=== PATIENT | female | born 1975 | race Caucasian/White ===

== ENCOUNTER 2017-02-10 21:16 | Emergency (ER) | payer BC, OTHER ==
[~2017-02-10] VITALS: Wt 115.0 kg
[2017-02-10] MEDS ORDERED: IBUP-1542 PO (23:18)
--- NOTE | 2017-02-10 23:21 | ERD ---
ER Documentation Chief Complaint Date/Time DATE: 02/10/17 TIME: 23:17 Chief Complaint l. ankle pain s/p trip and fall HPI 41-year-old female presents here in emergency department for complaints of left ankle pain after tripping and twisting it today. Patient described the pain as throbbing pain, 8/10 scale, is worse upon movement accompanied with swelling. Patient took ibuprofen at home to help with symptoms with mild relief. Patient denies any numbness or tingling. Patient denies any deformity. Patient denies any fever or chills. Patient denies any other joint pains. ROS All systems reviewed and are negative except as per history of present illness. Medications Home Meds Active Scripts Hydrocodone/Acetaminophen (Sabine 5-325 Tablet) 1 Each Tablet, 1 TAB PO Q6H Y for SEVERE PAIN LEVEL 7-10, #20 TAB Prov:SAKSHI ARVIZU [employer] 02/11/17 Ibuprofen* (Motrin*) 600 Mg Tab, 600 MG PO Q6H Y for PAIN AND OR ELEVATED TEMP, #30 TAB Prov:SAKSHI ARVIZU [employer] 02/11/17 Reported Medications Ibuprofen* (Motrin*) Unknown Strength Tab, PO Q6H Y for PAIN AND OR ELEVATED TEMP, #30 TAB 02/10/17 Allergies Allergies: Coded Allergies: No Known Allergy (Unverified , 02/10/17) PMhx/Soc Medical and Surgical Hx: pt denies Medical Hx History of Surgery: Yes (c section) Hx Alcohol Use: No Hx Substance Use: No Hx Tobacco Use: No Smoking Status: Never smoker FmHx Family History: No coronary disease, No diabetes, No other Physical Exam Vitals Vital Signs Date Time Temp Pulse Resp B/P Pulse Ox O2 Delivery O2 Flow Rate FiO2 02/11/17 00:39 96.0 74 128/89 96 Room Air 02/10/17 21:20 98.8 80 20 139/81 95 Physical Exam GENERAL: The patient is well developed and appropriate for usual state of health, in no apparent distress. HEENT: Atraumatic. Ears: Normal tympanic membrane, no erythema or bulging. No ear canal swelling. No ear discharge. Nose: normal nasal turbinates, no erythema or swelling. Normal nasal discharge. Throat: oropharynx clear. No tonsillar swelling or tonsillar exudates. No lymphadenopathy. CHEST: Clear to auscultation bilaterally. There are no rales, wheezes or rhonchi. HEART: Regular rate and rhythm. No murmurs, clicks, rubs or gallops. No S3 or S4. ABDOMEN: Soft, nontender and nondistended. Good bowel sounds. No rebound or guarding. No gross peritonitis. No gross organomegaly or masses. No Puentes sign or McBurney point tenderness. BACK: No midline or flank tenderness. EXTREMITIES: Tenderness on palpation of lateral malleolus of the left ankle, swelling noted, limitation of movement because of the swelling. Equal pulses bilaterally. Full range of motion of other joints of the body. Grossly neurovascularly intact. NEURO: Alert and oriented. Cranial nerves 2-12 intact. Motor strength in all 4 extremities with 5/5 strength. Sensation grossly intact. Normal speech and gait. SKIN: There is no apparent rash or petechia. The skin is warm and dry. HEMATOLOGIC AND LYMPHATIC: There is no evidence of excessive bruising or lymphedema. No gross cervical, axillary, or inguinal lymphadenopathy. Results 24 hrs PROCEDURE: XR left ankle. CLINICAL INDICATION: Post traumatic lateral left ankle pain TECHNIQUE: AP , oblique and lateral views of theleft ankle were performed. COMPARISON: None. FINDINGS: There is normal mineralization and alignment. Horizontal nondisplaced fracture through the lateral malleolus below the level of the ankle mortise is present. No additional fractures are noted. The ankle mortis and talar dome are intact. Severe soft tissue swelling overlying the lateral ankle is noted. There is no evidence for a radiopaque foreign body. RPTAT:HJJR IMPRESSION: Acute, closed, nondisplaced lateral malleolus fracture of the left ankle with severe overlying soft tissue swelling. Physician Joselin Date Time Electronically viewed and signed by Physician Joselin on 02/11/2017 00:05 / CC: SAKSHI ARVIZU [employer] After receiving patients xray report, a posterior ankle splint and stirrup splint was applied on the patients left ankle. After application of the splint , patient has intact sensation and circulation on distal area of the affected joint. Patient does not complain of numbness or tingling after application of the splint. Patient tolerated procedure well. She is using crutches already, was advised to continue to use it. Procedures/MDM Medical Decision Making: Patient's pain is most likely consistent with a left ankle fracture, lateral malleolus nondisplaced fracture. There is no suspicion for neurovascular compromise. Patient has intact sensation and circulation of the affected extremity. There is low suspicion for septic arthritis. Patient does not have any fever. Radiology exams of the affected area does not show any dislocation. Disposition: Home. Patient is given prescription for ibuprofen for pain, Sabine for severe pain. Patient was advised to elevate the affected area and apply ice on affected area. Patient was advised that if symptoms are worse, numbness, tingling, high fever, unable to move joint, worsening symptoms, to return to emergency department immediately. Otherwise, patient is advised to follow up with the primary care doctor in 5-7 days for reevaluation of symptoms. See orthopedic doctor within 3-5 days. Keep splint in place, use crutches. Departure Diagnosis: Primary Impression: Lateral malleolar fracture Encounter type: initial encounter Fracture type: closed Fracture alignment : nondisplaced Laterality: left Qualified Code: S82.65XA - Closed nondisplaced fracture of lateral malleolus of left fibula, initial encounter Condition: Stable Patient Instructions: Fracture, Ankle (General) Additional Instructions: . Patient is given prescription for ibuprofen for pain, Sabine for severe pain. Patient was advised to elevate the affected area and apply ice on affected area. Patient was advised that if symptoms are worse, numbness, tingling, high fever, unable to move joint, worsening symptoms, to return to emergency department immediately. Otherwise, patient is advised to follow up with the primary care doctor in 5-7 days for reevaluation of symptoms. See orthopedic doctor within 3-5 days. Keep splint in place, use crutches. SAKSHI ARVIZU NP Feb 10, 2017 23:20
--- NOTE | 2017-02-11 00:06 | RADRPT ---
PROCEDURE: XR left ankle. CLINICAL INDICATION: Post traumatic lateral left ankle pain TECHNIQUE: AP , oblique and lateral views of theleft ankle were performed. COMPARISON: None. FINDINGS: There is normal mineralization and alignment. Horizontal nondisplaced fracture through the lateral m alleolus below the level of the ankle mortise is present. No additional fractures are noted. The an kle mortis and talar dome are intact. Severe soft tissue swelling overlying the lateral ankle is not ed. There is no evidence for a radiopaque foreign body. RPTAT:HJJR IMPRESSION: Acute, closed, nondisplaced lateral malleolus fracture of the left ankle with severe overlying soft tissue swelling. Physician Joselin Date Time Electronically viewed and signed by Physician Joselin on 02/11/2017 00:05 /
[2017-02-11] MEDS ORDERED: HYDR-906 PO (00:13)
[2017-02-11] MEDS ORDERED: IBUP-1542 PO (00:13)
[2017-02-11 00:39] VITALS: BP 128/89; PULSE 74; TEMP 96
== END 2017-02-11 03:00 | disposition home or self-care (01) ==
LOC: FTE 21:16
DX: S82.65XA Nondisplaced fracture of lateral malleolus of left fibula, initial encounter for closed fracture (principal); W01.0XXA Fall on same level from slipping, tripping and stumbling without subsequent striking against object, initial encounter; Y92.9 Unspecified place or not applicable
CPT/HCPCS: 73610